=== PATIENT | male | born 1990 | race Caucasian/White ===

== ENCOUNTER → 2020-03-30 11:22 | Outpatient (BNVA) | payer OTHER, SELFPAY | PROVIDERS: Visit Provider Family Medicine Adult Medicine | DX: N41.1 Chronic prostatitis (principal); R35.0 Frequency of micturition; R30.0 Dysuria | CPT/HCPCS: 36416; 81000; 82962; 87086 ==

== ENCOUNTER → 2020-04-24 09:48 | Outpatient (BNVA) | payer OTHER, SELFPAY | PROVIDERS: Visit Provider Nurse Practitioner Family | DX: Z20.828 Contact with and (suspected) exposure to other viral communicable diseases (principal); R43.0 Anosmia; J06.9 Acute upper respiratory infection, unspecified | CPT/HCPCS: 87635 ==

== ENCOUNTER → 2020-06-13 08:41 | Outpatient (BNVA) | payer OTHER, SELFPAY | PROVIDERS: PCP Family Medicine Adult Medicine; Visit Provider Urology | DX: N41.1 Chronic prostatitis (principal) | CPT/HCPCS: 81003; 87086 ==

== ENCOUNTER 2020-09-12 07:05 | Outpatient (CLI) | payer OTHER, SELFPAY ==
--- NOTE | 2020-09-12 07:15 | XR_ITS ---
WS: [id number] ISAI, 09/12/2020 today Clinical Data: Stones Comparison: None. Findings: No abnormal intraabdominal masses or calcifications are seen. There is no dilatated small bowel or ev idence of obstruction. There is a large amount of fecal material throughout the colon. XR/XR KUB [id number] Impression: Large amount of fecal material in the colon.
== END 2020-09-12 07:06 | disposition home or self-care (01) ==
LOC: RAD 07:07
PROVIDERS: PCP Family Medicine Adult Medicine; Visit Provider Urology
DX: N20.9 Urinary calculus, unspecified (principal)
CPT/HCPCS: 74018; 81003

== ENCOUNTER → 2021-01-03 08:14 | Outpatient (BNVA) | payer OTHER, SELFPAY | PROVIDERS: PCP Family Medicine Adult Medicine; Visit Provider Urology | DX: N41.1 Chronic prostatitis (principal); N52.9 Male erectile dysfunction, unspecified | CPT/HCPCS: 81003 ==

== ENCOUNTER → 2021-01-31 14:39 | Outpatient (BNVA) | payer OTHER, SELFPAY | PROVIDERS: PCP Family Medicine Adult Medicine; Visit Provider Nurse Practitioner Family | DX: Z20.822 Contact with and (suspected) exposure to COVID-19 (principal) | CPT/HCPCS: 87635 ==

== ENCOUNTER → 2021-04-03 11:45 | Outpatient (BNVA) | payer OTHER, SELFPAY | PROVIDERS: PCP Family Medicine Adult Medicine; Visit Provider Nurse Practitioner Family | DX: Z20.822 Contact with and (suspected) exposure to COVID-19 (principal); J06.9 Acute upper respiratory infection, unspecified | CPT/HCPCS: 87635 ==

== ENCOUNTER 2021-04-30 13:28 | Emergency (ER) | payer OTHER, SELFPAY ==
[2021-04-30 14:09] VITALS: BP 137/84; PULSE 91; RESP 16; TEMP 36.7; O2SAT 99; BMI 23.0
[2021-04-30 15:56] LABS: Add Urine Microscopic? NO; Charge for UA Resulting for Rev
[2021-04-30 16:05] LABS: Bilirubin Urine Neg (Negative); Blood Urine Neg (Negative); Glucose Urine UA Norm (Normal); Ketones Urine Negative (Negative); Leukocyte Esterase Urine Negative (Negative); Nitrate Urine Negative (Negative); Protein Urine Neg (Negative); Specific Gravity, Urine 1.005 (1.005-1.030); Urine Appearance Clear (CLEAR); Urine Color Yellow (Yellow); Urobilinogen Urine Norm (Negative); pH Urine 7 (5-7)
[2021-04-30 16:50] VITALS: BP 124/73; PULSE 64; RESP 18; O2SAT 18
[2021-04-30 16:58] LABS: Basophils % 0.4 %; Eosinophils % 0.4 %; Hematocrit 46.4 % (42.0-52.0); Hemoglobin 15.8 g/dL (11.7-16.6); Lymphocytes # 1.4 10^3/uL (0.8-4.8); Lymphocytes % 27.9 %; Mean Corpuscular HGB Conc 34.1 g/dL (30.0-36.0); Mean Platelet Volume 10.6 fL (7.4-10.4); Monocytes # 0.4 10^3/uL (0.2-0.9); Monocytes % 8.2 %; Neutrophils # 3.15 10^3/uL (1.8-7.7); Neutrophils % 62.9 %; Nucleated Red Blood Cells % 0 %; Platelet Count 256 10^3/cmm (130-400); Red Blood Count 5.27 10^6/uL (4.1-5.3); Red Cell Distribution Width 11.9 % (12.1-15.1)
[2021-04-30 17:31] LABS: Alanine Aminotransferase 24 U/L (0-41); Albumin Level 5.2 g/dL (3.5-5.2); Alkaline Phosphatase 51 IU/L (40-130); Anion Gap 19.1 (5-19); Aspartate Amino Transferase 20 U/L (0-40); Blood Urea Nitrogen 10 mg/dL (6-20); Carbon Dioxide 24 mmol/L (22-29); Chloride 99 mmol/L (98-107); Globulin 2.6 g/dL (1.3-4.6); Glomerular Filtration Rate 98.4 mL/min (90-130); Glucose 89 mg/dL (65-115); Osmolality Calculated 285 mOsm/kg (285-295); Potassium 4.1 mmol/L (3.5-5.1); Sodium 138 mmol/L (136-145); Total Bilirubin 0.5 mg/dL (0.15-1.2); Total Protein 7.8 g/dL (6.6-8.7)
--- NOTE | 2021-04-30 18:41 | CTR_ITS ---
PROCEDURE INFORMATION: Exam: CT Abdomen And Pelvis With Contrast Exam date and time: 04/30/2021 6:41 PM Age: 30 years old Clinical indication: Abdominal pain; Generalized TECHNIQUE: Imaging protocol: Computed tomography of the abdomen and pelvis with contrast. Total images: 224 Radiation optimization: All CT scans at this facility use at least one of these dose optimization techniques: automated exposure control; mA and/or kV adjustment per patient size (includes targeted exams where dose is matched to clinical indication); or iterative reconstruction. Contrast material: OMNI 300; Contrast volume: 95 ml; Contrast route: INTRAVENOUS (IV); COMPARISON: CR XR KUB [id number] 09/12/2020 7:13 AM RADIATION DOSE METRICS: Total DLP (mGy-cm): 1013.83 FINDINGS: Lungs: Limited assessment of the lung bases fails to reveal evidence for active cardiopulmonary process. Liver: No visible hepatic mass or cystic structure. Gallbladder and bile ducts: Normal. No calcified stones. No ductal dilation. Pancreas: Pancreas is unremarkable. No visible pancreatic ductal ectasia. Spleen: Spleen unremarkable. Adrenal glands: Adrenal glands unremarkable. Kidneys and ureters: No hydronephrosis or perinephric fluid. Small nonobstructing caliceal focus of nephrolithiasis superior pole right kidney measuring 3 mm. No visible left-sided nephrolithiasis. No visible ureterolithiasis. Stomach and bowel: Assessment of the hollow viscus fails to reveal evidence of active or acute pathology. Nonobstructed bowel pattern. No visible acute diverticulitis. No visible adynamic or reactive ileus. Appendix: The appendix is visualized and appears noninflamed. Intraperitoneal space: No visible pneumoperitoneum or intraperitoneal ascites. Vasculature: Portal vein patent. The abdominal aorta is nonaneurysmal. Lymph nodes: Few small pericecal mesenteric lymph nodes. Doubt of clinical significance. No evidence of generalized retroperitoneal or mesenteric lymphadenopathy/lymphadenitis. Urinary bladder: Urinary bladder unremarkable. No visible bladder stone. Reproductive: Unremarkable as visualized. Bones/joints: No visible active or acute osseous pathology. Soft tissues: Unremarkable. CT/CT abdomen pelvis w con* [id number] IMPRESSION: 1. Currently no visible evidence for acute abdominal or pelvic pathologic process. 2. Small nonobstructing caliceal focus of nephrolithiasis superior pole right kidney measuring 3 mm. 3. No visible ureterolithiasis bilaterally. COMMENTS: Consistent with the [employer]'s Incidental Findings Committee white paper (J Am Janie Radiol 2018): Any incidental renal lesion less than 1 cm or classified as too small to characterize, or any incidental cystic renal lesion characterized as simple-appearing, is likely benign. No follow-up imaging is recommended for these lesions per consensus recommendations based on imaging criteria.
[2021-04-30 19:29] VITALS: BP 133/77; PULSE 76; RESP 20; O2SAT 96
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
[2021-04-30] MEDS: iohexol 300 mg/mL 100 mL Btl IV (19:52)
[2021-04-30] MEDS: ondansetron 2 mg/ML SDV 2 mL 4 MG IVP (20:03)
[2021-04-30 20:04] VITALS: RESP 19
[2021-04-30] MEDS: morphine 4 mg/mL SDV 1 mL IVP (20:04)
[2021-04-30 20:10] VITALS: BP 134/73; PULSE 68; RESP 19; O2SAT 97
[2021-04-30 20:56] VITALS: BP 152/85; PULSE 73; O2SAT 95
== END 2021-04-30 21:00 | disposition home or self-care (01) ==
PROVIDERS: Physician Assistant; Emergency Provider Emergency Medicine; PCP Family Medicine Adult Medicine
DX: R10.84 Generalized abdominal pain (principal); Z87.442 Personal history of urinary calculi
CPT/HCPCS: 36415; 74177; 80053; 81003; 85025; 96374; 96375; 99284; J2270; J2405; Q9967

== ENCOUNTER → 2021-05-03 09:12 | Outpatient (BNVA) | payer OTHER, SELFPAY | PROVIDERS: PCP Family Medicine Adult Medicine; Visit Provider Surgery | DX: R19.4 Change in bowel habit (principal); K21.9 Gastro-esophageal reflux disease without esophagitis | CPT/HCPCS: 87635 ==

== ENCOUNTER 2021-05-06 06:52 | Day surgery (SDC) | payer OTHER, SELFPAY ==
[2021-05-03 11:02] VITALS: BMI 24.3
[2021-05-06 07:17] VITALS: BP 152/87; PULSE 81; RESP 18; TEMP 36.2; O2SAT 97
[2021-05-06] MEDS: sodium chloride 0.9% 1,000 ML 30 ML IV (07:30)
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
--- NOTE | 2021-05-06 08:14 | W.PM.OPSUD ---
Surgery/Procedure H&P Update DATE OF PROCEDURE: May 06, 2021 DATE H&P PERFORMED: 04/29/21 H&P UPDATE INFORMATION: I have reviewed H&P completed within last 30 days, I have examined patient prior to procedure and No changes to prior documentation PREOP DIAGNOSIS: Abdominal pain and change in bowel habits PRIMARY INDICATION FOR PROCEDURE: The same PLANNED PROCEDURE: Operation Date: 05/06/21 08:30 Proposed Procedures p EGD/Colon 31705 K21.9(Not Applicable) - Del Wells MD s Colonoscopy 27182 R19.4(Not Applicable) - Del Wells MD
[2021-05-06 08:54] VITALS: BP 111/64; PULSE 74; RESP 16; TEMP 36.2; O2SAT 98
[2021-05-06 09:07] VITALS: BP 107/63; PULSE 71; RESP 18; O2SAT 99
--- NOTE | 2021-05-06 14:53 | ANE.PACU2 ---
Inpatient post-anesthesia follow up: Airway intact: Yes Vital signs: Temperature 97.2 F Pulse Rate 71 Respiratory Rate 18 Blood Pressure 107/63 Pulse Oximetry 99 Oxygen Delivery Me thod Room Air Oxygen Flow Rate 3 Fraction of Inspir ed Oxygen Hydration adequate: Yes Nausea and vomiting: No Pain level: 1 Mental status: Baseline
== END 2021-05-06 09:50 | disposition home or self-care (01) ==
PROVIDERS: PCP Family Medicine Adult Medicine; Visit Provider Surgery
PROC: 0DJ08ZZ Inspection of Upper Intestinal Tract, Via Natural or Artificial Opening Endoscopic (ICD-10-PCS; CPT 43235; principal; 2021-05-06 08:30)
PROC: 0DJD8ZZ Inspection of Lower Intestinal Tract, Via Natural or Artificial Opening Endoscopic (ICD-10-PCS; CPT 45378; 2021-05-06 08:30)
DX: K21.00 Gastro-esophageal reflux disease with esophagitis, without bleeding (principal); K29.50 Unspecified chronic gastritis without bleeding; F41.9 Anxiety disorder, unspecified; F32.A Depression, unspecified
CPT/HCPCS: 43239; 45378; 82274; 83630; 87493; 87506; 88305; 96360; J2704; J7030

== ENCOUNTER → 2021-05-28 08:32 | Outpatient (BNVA) | payer OTHER, SELFPAY | PROVIDERS: PCP Family Medicine Adult Medicine; Visit Provider Urology | DX: N41.1 Chronic prostatitis (principal) | CPT/HCPCS: 81003 ==

== ENCOUNTER 2021-06-25 08:19 | Outpatient (CLI) | payer OTHER, SELFPAY ==
--- NOTE | 2021-06-25 08:30 | FL_ITS ---
WS: [id number] FL small bowel series* [id number] REASON FOR EXAM: R10.11 - Right upper quadrant pain FLUOROSCOPY TIME: 1 minutes FINDINGS: After the ingestion of area medial, multiple prone abdominal examinations were performed at 15 minute intervals. After the barium reached the colon, the multiple small bowel loops filled with contrast w ere palpated and spot films under fluoroscopic guidance. Small bowel demonstrates normal caliber and normal mucosal pattern. No extrinsic or intrinsic mass effect was identified. There is fairly rapid progression of contrast to the colon. FL/FL small bowel series* [id number] IMPRESSION: Normal small bowel examination.
[2021-06-25] MEDS: diatrizoate meglumine 30 mL Sol PO (08:53)
== END 2021-06-25 08:20 | disposition home or self-care (01) ==
LOC: RAD 08:23
PROVIDERS: PCP Family Medicine Adult Medicine; Visit Provider Surgery
DX: R10.11 Right upper quadrant pain (principal)
CPT/HCPCS: 74250

== ENCOUNTER 2021-07-03 07:13 | Outpatient (CLI) | payer OTHER, SELFPAY ==
--- NOTE | 2021-07-03 07:15 | US_ITS ---
WS: [id number] Complete ABDOMINAL ULTRASOUND HISTORY: R10.84 - Generalized abdominal pain COMPARISON: CT abdomen and pelvis 04/30/2021 Liver: 14.6 cm in length. Liver is normal size and echogenicity with no mass or intrahepatic dilatati on. Portal Vein: Normal hepatopetal flow with monophasic waveform. Gallbladder: Normally distended with no gallstones, wall thickening or pericholecystic fluid. Gallbladder wall thickness: 0.2 cm. Pancreas: Normal size and echogenicity. CBD: 0.3 cm. Right kidney: 10.2 cm x 4.9 cm x 4.4 cm. No mass, cortical thickening or hydronephrosis. Left kidney: 10.7 cm x 4.7 cm x 4.2 cm. No mass, cortical thickening or hydronephrosis. Spleen: Normal size and echogenicity. Abdominal aorta and IVC are within normal limits. No ascites. US/US abdomen complete* [id number] IMPRESSION: Normal complete abdomen ultrasound.
--- NOTE | 2021-07-03 09:30 | US_ITS ---
WS: [id number] TRANSABDOMINAL PELVIC ULTRASOUND HISTORY: R10.84 - Generalized abdominal pain, male patient. COMPARISON: None available. Urinary bladder is moderately well distended. No intraluminal filling defect or mass. There is very m ild diffuse wall thickening. Prostate gland is mildly heterogeneous. Prostate measures 3.3 x 3.3 x 2. 7 cm. No free fluid in the pelvis. US/US pelvic complete* [id number] IMPRESSION: 1. Very mild diffuse wall thickening of the urinary bladder but no mass. May b e due to only partial distention. 2. No intraluminal filling defect or free fluid.
== END 2021-07-03 07:14 | disposition home or self-care (01) ==
LOC: RAD 07:14
PROVIDERS: PCP Family Medicine Adult Medicine; Visit Provider Surgery
DX: R10.84 Generalized abdominal pain (principal); R19.4 Change in bowel habit
CPT/HCPCS: 76700; 76856

== ENCOUNTER → 2023-12-31 08:57 | Outpatient (BNVA) | payer OTHER, SELFPAY | PROVIDERS: PCP Family Medicine Adult Medicine | DX: R39.9 Unspecified symptoms and signs involving the genitourinary system (principal) | CPT/HCPCS: 81000 ==